=== PATIENT | female | born 1970 | race African-American/Black ===

== ENCOUNTER 2017-08-28 05:34 | Observation (INO) | payer SELFPAY ==
[2017-08-28] VITALS (15 sets, daily range): BP systolic 97–188; BP diastolic 53–88; PULSE 56–88; RESP 16–20; TEMP 97.7–98.8; O2SAT 97–100
[~2017-08-28] VITALS: Ht 152.4 cm; Wt 72.0 kg
--- NOTE | 2017-08-28 05:42 | PD ---
HPI Chief Complaint: GI Complaint Time Seen by Provider: 05:36 Travel History International Travel<30 days: No Contact w/Intl Traveler<30days: No Traveled to known affect area: No History of Present Illness HPI The patient is a 47 year old female who presents to the [facility] emergency department with a history of chest pain that she reports began like a sensation of indigestion in the evening on Monday. She reports that this went away, however when she woke up at 4:30 AM and began to walk around after taking a shower she then began to have sharp left-sided chest pain. The patient reports having associated shortness of breath and nausea. She reports that the pain is coming and going. The patient reports that the pain is worse with taking a deep breath. She denies having any prior history of DVT or PE. She reports that she does take a low-dose aspirin daily. She reports that she last took her aspirin yesterday. The patient reports that she has a history of TIA and myocardial infarction 5 years ago. She cannot recall when she last had a stress test done. She denies ever having cardiac catheterization or stent placement. She denies having any associated diaphoresis. The patient reports that she does smoke one half a pack of cigarettes per day. Review of systems otherwise, the patient denies having any known recent fevers, cough, congestion , neck pain, diarrhea, urinary symptoms, or neurologic symptoms. The patient moved to the area from [place] 3 months ago. She reports that she has been out of all of her medications during that period of time and she has not established with a local primary care doctor. LMP: 3 years ago, postmenopausal. [facility] Past Medical History Narrative Medical The patient's past medical history is significant for prior TIA, myocardial infarction, hypertension, and acid reflux. Cerebrovascular Accident: Yes Diminished Hearing: No Hypertension: Yes Immunizations Current: Yes Myocardial Infarction: Yes ?: Not Past Surgical History Narrative Surgical The patient's past surgical history is significant for 3 prior C-sections. Section: Yes Social History Alcohol Use: No Tobacco Use: Yes (2 PPD) Substance Use: No Allergies-Medications (Allergen,Severity, Reaction): Coded Allergies: No Known Allergies (Unverified , 08/28/17) Reported Meds & Prescriptions Reported Meds & Active Scripts Active Hydrochlorothiazide 25 Mg Tab 25 Mg PO DAILY Omeprazole 20 Mg Tab 20 Mg PO DAILY Simvastatin 10 Mg Tab 10 Mg PO DAILY Lisinopril 10 Mg Tab 10 Mg PO DAILY Review of Systems Except as stated in HPI: all other systems reviewed are Neg General / Constitutional: No: Fever Eyes: No: Visual changes HENT: No: Headaches Cardiovascular: Positive: Chest Pain or Discomfort Respiratory: Positive: Shortness of Breath Gastrointestinal: Positive: Nausea, Vomiting, No: Abdominal Pain Genitourinary: No: Dysuria Musculoskeletal: No: Pain Skin: No Rash Neurologic: No: Weakness Psychiatric: No: Depression Endocrine: No: Polydipsia Hematologic/Lymphatic: No: Easy Bruising Physical Exam Narrative General: The patient is a well-developed well-nourished female in no acute distress Head and Neck exam: Head is normocephalic atraumatic. Eyes: EOMI, pupils are equal round and reactive to light. Nose: Midline septum with pink mucous membranes Mouth: Dentition unremarkable. Moist mucus membranes. Posterior oropharynx is not erythematous. No tonsillar hypertrophy. Uvula midline. Airway patent. Neck: No palpable lymphadenopathy. No nuchal rigidity. No thyromegaly. Cardiovascular: Regular rate and rhythm without murmurs, gallops, or rubs. No pulse deficits to the extremities on simultaneous auscultation and palpation of her radial artery. Lungs: Clear to auscultation bilaterally. No wheezes, rhonchi, or rales. Abdomen: Soft, without tenderness to palpation in all 4 quadrants of the abdomen. No guarding, rebound, or rigidity. Normal bowel sounds are audible. No tenderness on palpation of McBurney's point. Negative Corbett sign. Extremities: No clubbing, cyanosis, or edema. 2+ pulses in all 4 extremities. No calf tenderness on palpation. Back: No spinous process tenderness to palpation. No costovertebral angle tenderness to palpation. Neurologic Exam: Grossly nonfocal. Skin Exam: No rash noted. Intact skin that is warm and dry. Data Data Last Documented VS Vital Signs Date Time Temp Pulse Resp B/P (MAP) Pulse Ox O2 Delivery O2 Flow Rate FiO2 08/28/17 07:51 17 08/28/17 07:00 97.8 88 156/80 (105) 99 Room Air Orders Orders Electrocardiogram (08/28/17 05:51) Complete Blood Count With Diff (08/28/17 05:51) Comprehensive Metabolic Panel (08/28/17 05:51) Creatine Kinase (Cpk) (08/28/17 05:51) Ckmb (Isoenzyme) Profile (08/28/17 05:51) Troponin I (08/28/17 05:51) B-Type Natriuretic Peptide (08/28/17 05:51) Prothrombin Time / Inr (Pt) (08/28/17 05:51) Act Partial Throm Time (Ptt) (08/28/17 05:51) Lipase (08/28/17 05:51) Urinalysis - C+S If Indicated (08/28/17 05:51) D-Dimer (08/28/17 05:51) Chest, Single Ap (08/28/17 05:51) Iv Access Insert/Monitor (08/28/17 05:51) Ecg Monitoring (08/28/17 05:51) Oximetry (08/28/17 05:51) Ed Urine Pregnancytest Poc (08/28/17 05:51) CKMB (08/28/17 06:28) CKMB% (08/28/17 06:28) Aspirin Chew (Aspirin Chew) (08/28/17 07:30) Nitroglycerin 2% Oint (Nitroglycerin 2% (08/28/17 07:30) Nitroglycerin Sl (Nitrostat Sl) (08/28/17 07:30) Sodium Chlorid 0.9% 500 Ml Inj (Ns 500 M (08/28/17 07:30) Ondansetron Inj (Zofran Inj) (08/28/17 07:30) Admit Order (Ed Use Only) (08/28/17 08:38) Labs Laboratory Tests Test 08/28/17 06:20 08/28/17 06:28 08/28/17 07:23 Urine Color YELLOW Urine Turbidity CLEAR Urine pH 6.5 Urine Specific [place] 1.020 Urine Protein TRACE mg/dL Urine Glucose (UA) NEG mg/dL Urine Ketones NEG mg/dL Urine Occult Blood NEG Urine Nitrite NEG Urine Bilirubin NEG Urine Urobilinogen LESS THAN 2.0 MG/DL Urine Leukocyte Esterase MOD Urine RBC 2 /hpf Urine WBC 3 /hpf Urine Squamous Epithelial Cells 2 /hpf Urine Bacteria RARE /hpf Urine Mucus FEW /lpf Microscopic Urinalysis Comment CULT NOT INDICATED White Blood Count 9.7 TH/MM3 Red Blood Count 4.12 MIL/MM3 Hemoglobin 12.6 GM/DL Hematocrit 37.0 % Mean Corpuscular Volume 89.7 FL Mean Corpuscular Hemoglobin 30.7 PG Mean Corpuscular Hemoglobin Concent 34.2 % Red Cell Distribution Width 14.3 % Platelet Count 226 TH/MM3 Mean Platelet Volume 9.3 FL Neutrophils (%) (Auto) 56.8 % Lymphocytes (%) (Auto) 33.9 % Monocytes (%) (Auto) 6.7 % Eosinophils (%) (Auto) 1.9 % Basophils (%) (Auto) 0.7 % Neutrophils # (Auto) 5.5 TH/MM3 Lymphocytes # (Auto) 3.3 TH/MM3 Monocytes # (Auto) 0.6 TH/MM3 Eosinophils # (Auto) 0.2 TH/MM3 Basophils # (Auto) 0.1 TH/MM3 CBC Comment DIFF FINAL Differential Comment Blood Urea Nitrogen 10 MG/DL Creatinine 0.64 MG/DL Random Glucose 79 MG/DL Total Protein 7.9 GM/DL Albumin 3.4 GM/DL Calcium Level 9.3 MG/DL Alkaline Phosphatase 124 U/L Aspartate Amino Transf (AST/SGOT) 21 U/L Alanine Aminotransferase (ALT/SGPT) 22 U/L Total Bilirubin 0.3 MG/DL Sodium Level 140 MEQ/L Potassium Level 4.8 MEQ/L Chloride Level 108 MEQ/L Carbon Dioxide Level 24.8 MEQ/L Anion Gap 7 MEQ/L Estimat Glomerular Filtration Rate 120 ML/MIN Total Creatine Kinase 117 U/L Creatine Kinase MB LESS THAN 0.5 NG/ML Troponin I LESS THAN 0.02 NG/ML B-Type Natriuretic Peptide 6 PG/ML Lipase 135 U/L Prothrombin Time 10.0 SEC Prothromb Time International Ratio 1.0 RATIO Activated Partial Thromboplast Time 26.6 SEC D-Dimer Quantitative (PE/DVT) 0.34 MG/L FEU [facility] Medical Decision Making Medical Screen Exam Complete: Yes Emergency Medical Condition: Yes Medical Record Reviewed: Yes Interpretation(s) Last Impressions Chest X-Ray 08/28/17 0551 Signed Impressions: Service Date/Time: Monday, August 28, 2017 06:25 - CONCLUSION: No acute disease. Arie Edwards MD Differential Diagnosis Acute coronary syndrome, versus pulmonary embolism, versus pneumonia, versus pleurisy, versus anxiety disorder, versus acid reflux Narrative Course During the course of the patient's emergency department visit, the patient's history, examination, and differential diagnosis were reviewed with the patient. The patient was placed on a residential monitor with oximetry and frequent blood pressure monitoring. The patient had IV access obtained and blood work sent for analysis. The patient had an EKG done on arrival that shows a sinus rhythm heart rate of 68, no acute ST segment elevation, QRS duration is 70 ms, QTC 408 ms. The patient was initially provided Zofran 4 mg IV for nausea, sublingual nitroglycerin 1, nitroglycerin wanted to the chest wall, aspirin 324 mg p.o. 1. Normal saline 500 mL bolus 1. The patient's laboratory studies were reviewed and remarkable for CBC that is within normal limits. Chest x-ray that shows no acute cardiopulmonary disease. Chemistries, cardiac enzymes, PT PTT, d-dimer pending at the conclusion of my shift. The patient's case will be checked out to the oncoming emergency physician to disposition the patient based on the conclusion of her workup. Diagnosis Primary Impression: Chest pain, rule out acute myocardial infarction Scripts Hydrochlorothiazide (Hydrochlorothiazide) 25 Mg Tab 25 MG PO DAILY for Blood Pressure Management, #30 TAB 2 Refills Prov: Becca San 08/28/17 Omeprazole (Omeprazole) 20 Mg Tab 20 MG PO DAILY for Reflux, #30 TAB 0 Refills Prov: Becca San 08/28/17 Simvastatin (Simvastatin) 10 Mg Tab 10 MG PO DAILY for Cholesterol Management, #30 TAB 2 Refills Prov: Becca San 08/28/17 Lisinopril (Lisinopril) 10 Mg Tab 10 MG PO DAILY, #30 TAB 2 Refills Prov: Becca San 08/28/17 Oksana Holbrook MD Aug 28, 2017 05:42
--- NOTE | 2017-08-28 06:35 | RADRPT ---
EXAM DATE/TIME: 08/28/2017 06:25 [place] COMPARISON: No previous studies available for comparison. INDICATIONS : Shortness of breath, weakness. MEDICAL HISTORY : None. SURGICAL HISTORY : None. ENCOUNTER: Initial ACUITY: 1 day PAIN SCORE: 0/10 LOCATION: Bilateral chest FINDINGS: A single view of the chest demonstrates the lungs to be symmetrically aerated without evidence of mas s, infiltrate or effusion. The cardiomediastinal contours are unremarkable. Osseous structures are intact. CONCLUSION: No acute disease. rAie Edwards MD on August 28, 2017 at 6:33 Board Certified Radiologist. This report was verified electronically.
[2017-08-28 06:48] LABS: AUTOMATED NEUTROPHIL # 5.5 TH/MM3 (1.8-7.7); BASOPHIL # 0.1 TH/MM3 (0-0.2); BASOPHIL % 0.7 % (0.0-2.0); EOSINOPHIL # 0.2 TH/MM3 (0-0.4); EOSINOPHIL % 1.9 % (0.0-4.0); HEMOGLOBIN 12.6 GM/DL (11.6-15.3); LYMPH % 33.9 % (9.0-44.0); LYMPHOCYTE # 3.3 TH/MM3 (1.0-4.8); MEAN CELL VOLUME 89.7 FL (80.0-100.0); MEAN CORPUSCULAR HEMOGLOBIN 30.7 PG (27.0-34.0); MEAN CORPUSCULAR HGB CONC 34.2 % (32.0-36.0); MEAN PLATELET VOLUME 9.3 FL (7.0-11.0); MONO % 6.7 % (0.0-8.0); MONOCYTE # 0.6 TH/MM3 (0-0.9); NEUT % 56.8 % (16.0-70.0); PLATELET COUNT 226 TH/MM3 (150-450); RED BLOOD COUNT 4.12 MIL/MM3 (4.00-5.30); RED CELL DISTRIBUTION WIDTH 14.3 % (11.6-17.2); WHITE BLOOD COUNT 9.7 TH/MM3 (4.0-11.0)
[2017-08-28 06:49] LABS: BACTERIA, URINE RARE /hpf; BILIRUBIN, URINE NEG (NEG); BLOOD, URINE NEG (NEG); GLUCOSE,URINE NEG (NEG); KETONE, URINE NEG (NEG); MUCUS URINE FEW /lpf (OCC); NITRITE,URINE NEG (NEG); PH, URINE 6.5 (5.0-8.5); SQUAMOUS EPITHELIAL CELL URINE 2 /hpf (0-5); URINE COLOR YELLOW (YELLW/STRAW); URINE LEUKOCYTE ESTERASE MOD (NEG)
[2017-08-28 07:12] LABS: ALT (GPT) 22 U/L (10-53)
[2017-08-28 07:17] LABS: ALBUMIN 3.4 GM/DL (3.4-5.0); ALKALINE PHOSPHATASE 124 U/L (45-117); AST (GOT) 21 U/L (15-37); BICARBONATE 24.8 MEQ/L (21.0-32.0); BLOOD UREA NITROGEN 10 MG/DL (7-18); CALCIUM 9.3 MG/DL (8.5-10.1); CHLORIDE 108 MEQ/L (98-107); CREATININE 0.64 MG/DL (0.50-1.00); GLOMERULAR FILTRATION RATE 120 ML/MIN (>89); GLUCOSE,RANDOM 79 MG/DL (74-106); SODIUM (NA) 140 MEQ/L (136-145); TOTAL BILIRUBIN ADULT 0.3 MG/DL (0.2-1.0); TOTAL PROTEIN 7.9 GM/DL (6.4-8.2); TROPONIN I LESS THAN 0.02 NG/ML (0.02-0.05)
--- NOTE | 2017-08-28 07:18 | PD ---
Physical Exam Date Seen by Provider: Aug 28, 2017 Time Seen by Provider: 07:00 Narrative Patient signed out to me by Dr. Holbrook at change of shift. This is a 47-year- old female with history of TIAs, myocardial infarction, presents here with complaints of chest pain. Chest pain somewhat atypical in that it is pleuritic and present with deep breath. She has no previous history of DVT or PE. Patient does take a baby aspirin daily and last took 1 yesterday. EKG shows no evidence of acute ST elevation. Laboratory tests are pending at the time of sign out. Data Data Last Documented VS Vital Signs Date Time Temp Pulse Resp B/P (MAP) Pulse Ox O2 Delivery O2 Flow Rate FiO2 08/28/17 07:51 17 08/28/17 07:00 97.8 88 156/80 (105) 99 Room Air Orders Orders Electrocardiogram (08/28/17 05:51) Complete Blood Count With Diff (08/28/17 05:51) Comprehensive Metabolic Panel (08/28/17 05:51) Creatine Kinase (Cpk) (08/28/17 05:51) Ckmb (Isoenzyme) Profile (08/28/17 05:51) Troponin I (08/28/17 05:51) B-Type Natriuretic Peptide (08/28/17 05:51) Prothrombin Time / Inr (Pt) (08/28/17 05:51) Act Partial Throm Time (Ptt) (08/28/17 05:51) Lipase (08/28/17 05:51) Urinalysis - C+S If Indicated (08/28/17 05:51) D-Dimer (08/28/17 05:51) Chest, Single Ap (08/28/17 05:51) Iv Access Insert/Monitor (08/28/17 05:51) Ecg Monitoring (08/28/17 05:51) Oximetry (08/28/17 05:51) Ed Urine Pregnancytest Poc (08/28/17 05:51) CKMB (08/28/17 06:28) CKMB% (08/28/17 06:28) Aspirin Chew (Aspirin Chew) (08/28/17 07:30) Nitroglycerin 2% Oint (Nitroglycerin 2% (08/28/17 07:30) Nitroglycerin Sl (Nitrostat Sl) (08/28/17 07:30) Sodium Chlorid 0.9% 500 Ml Inj (Ns 500 M (08/28/17 07:30) Ondansetron Inj (Zofran Inj) (08/28/17 07:30) Admit Order (Ed Use Only) (08/28/17 08:38) Labs Laboratory Tests Test 08/28/17 06:20 08/28/17 06:28 08/28/17 07:23 Urine Color YELLOW Urine Turbidity CLEAR Urine pH 6.5 Urine Specific [place] 1.020 Urine Protein TRACE mg/dL Urine Glucose (UA) NEG mg/dL Urine Ketones NEG mg/dL Urine Occult Blood NEG Urine Nitrite NEG Urine Bilirubin NEG Urine Urobilinogen LESS THAN 2.0 MG/DL Urine Leukocyte Esterase MOD Urine RBC 2 /hpf Urine WBC 3 /hpf Urine Squamous Epithelial Cells 2 /hpf Urine Bacteria RARE /hpf Urine Mucus FEW /lpf Microscopic Urinalysis Comment CULT NOT INDICATED White Blood Count 9.7 TH/MM3 Red Blood Count 4.12 MIL/MM3 Hemoglobin 12.6 GM/DL Hematocrit 37.0 % Mean Corpuscular Volume 89.7 FL Mean Corpuscular Hemoglobin 30.7 PG Mean Corpuscular Hemoglobin Concent 34.2 % Red Cell Distribution Width 14.3 % Platelet Count 226 TH/MM3 Mean Platelet Volume 9.3 FL Neutrophils (%) (Auto) 56.8 % Lymphocytes (%) (Auto) 33.9 % Monocytes (%) (Auto) 6.7 % Eosinophils (%) (Auto) 1.9 % Basophils (%) (Auto) 0.7 % Neutrophils # (Auto) 5.5 TH/MM3 Lymphocytes # (Auto) 3.3 TH/MM3 Monocytes # (Auto) 0.6 TH/MM3 Eosinophils # (Auto) 0.2 TH/MM3 Basophils # (Auto) 0.1 TH/MM3 CBC Comment DIFF FINAL Differential Comment Blood Urea Nitrogen 10 MG/DL Creatinine 0.64 MG/DL Random Glucose 79 MG/DL Total Protein 7.9 GM/DL Albumin 3.4 GM/DL Calcium Level 9.3 MG/DL Alkaline Phosphatase 124 U/L Aspartate Amino Transf (AST/SGOT) 21 U/L Alanine Aminotransferase (ALT/SGPT) 22 U/L Total Bilirubin 0.3 MG/DL Sodium Level 140 MEQ/L Potassium Level 4.8 MEQ/L Chloride Level 108 MEQ/L Carbon Dioxide Level 24.8 MEQ/L Anion Gap 7 MEQ/L Estimat Glomerular Filtration Rate 120 ML/MIN Total Creatine Kinase 117 U/L Creatine Kinase MB LESS THAN 0.5 NG/ML Troponin I LESS THAN 0.02 NG/ML B-Type Natriuretic Peptide 6 PG/ML Lipase 135 U/L Prothrombin Time 10.0 SEC Prothromb Time International Ratio 1.0 RATIO Activated Partial Thromboplast Time 26.6 SEC D-Dimer Quantitative (PE/DVT) 0.34 MG/L FEU [facility] Medical Record Reviewed: Yes Supervised Visit with CLARENCE: No Differential Diagnosis ACS versus musculoskeletal pain versus pulmonary embolism Narrative Course 47-year-old female with history of coronary artery disease, previous TIA, presents today with complaints of chest pain. Pain is somewhat atypical in that it is pleuritic. The patient has had a previous [place]. She has recently moved here 3 months ago and has not established with a primary care physician. Given her previous history, tobacco abuse, and no physician established, she will be placed in the chest pain center for rule out protocol. Diagnosis Primary Impression: Chest pain Additional Impressions: Coronary artery disease History of TIA (transient ischemic attack) Tobacco use Admitting Information Admitting Physician Requests: Observation Scripts No Active Prescriptions or Reported Meds Cornel Greenfield MD Aug 28, 2017 07:18
[2017-08-28] MEDS ORDERED: ONDANSETRON HCL 4 MG/2 ML VIAL IV PUSH ONE (07:30)
[2017-08-28] MEDS ORDERED: SODIUM CHLORID 0.9% 500 ML INJ 500 ML IV ONE (07:30)
[2017-08-28] MEDS ORDERED: ASPIRIN 81 MG CHEW TAB CHEW ONE (07:30)
[2017-08-28] MEDS ORDERED: NITROGLYCERIN 2% OINT 1 GM PACKET TOPICAL ONE (07:30)
[2017-08-28] MEDS ORDERED: NITROGLYCERIN 0.4 MG SL 25 TABS/BTL SL ONE (07:30)
[2017-08-28 07:58] LABS: D-DIMER 0.34 MG/L FEU (0.00-0.50)
[2017-08-28] MEDS ORDERED: ONDANSETRON HCL 4 MG/2 ML VIAL IV PUSH PRN (09:30)
[2017-08-28] MEDS ORDERED: ACETAMINOPHEN 500 MG CPLT PO PRN (09:30)
[2017-08-28] MEDS ORDERED: NITROGLYCERIN 0.4 MG SL 25 TABS/BTL SL PRN (09:30)
[2017-08-28] MEDS ORDERED: SODIUM CHLORIDE 0.9% FLUSH 10 ML FLUSH IV FLUSH PRN (09:30)
--- NOTE | 2017-08-28 10:51 | HHI.HP ---
HPI Primary Care Physician No Primary Care Physician Chief Complaint Chest pain History of Present Illness 47 year old female with history of coronary artery disease, hypertension, hyperlipidemia, and current smoker presents to emergency room for further evaluation of chest pain. Onset last evening 8:30 PM. Characterized as indigestion, endorses burning esophagus are with sour taste in mouth. Propped herself up and discomfort eased up allowing her to sleep until approx. 4 am. Feelings of ingestion persisted upon awakening. Awoken due to a "hot flash." Reports going through menopause, often waking up diaphoretic. Proceeded to take a shower, upon exiting shower developed quick onset of severe, sharp pain to left anterior chest. Duration 4-5 minutes. During severe discomfort hurt to take a deep breath and she became nauseous. Denied vomiting or difficulty breathing. She is unsure if she become diaphoretic due to frequent "hot flashes. " Precipitating factors movement, palpation, and taking a deep breath. Relieving factors laying still or holding area. Denies similar pain in the past. Known CAD, reporting NH age 44. Cannot recall events of NH, stating feeling like being hit by a truck, before passing out, waking up a day later and told she had a heart attack. Endorses productive cough x3 days, sputum reported to be green in color. No known fever, denies chills or body aches. Recently moved from [place] 3 months, has not established with a PCP. Endorses being out of her GERD, HTN, and HLD medications for 3 months. Review of Systems General: No fatigue,weakness, fever, chills, recent illness, or change in appetite. Has been in her general state of health other than productive cough x 3 days. HEENT: No KEY, no vision changes. Current nasal congestion and drainage. CV: Continues to have chest pain as stated above No CP, pressure, palpitations, intermittent leg pain, dizziness RESP: Productive cough x3 days, sputum green. No SOB, wheeze, or history of asthma. GI: No nausea, vomiting, or bowel changes. : No dysuria, urgency, frequency EXT: No lower leg edema, no paraesthesias MS: No discomfort or change in ROM NEURO: No difficulty with balance, LOC, motor/sensory deficits PSYCH: No anxiety, depression, or situational stress SKIN: No rashes, no concerning lesions Past Family Social History Allergies: Coded Allergies: No Known Allergies (Unverified , 08/28/17) Past Medical History Hypertension, hyperlipidemia, GERD, TIA (age 46), NH (age 44), current smoker Past Surgical History C-sections Reported Medications Reported Meds & Active Scripts Active No Active Prescriptions or Reported Medications Reports being out of medication 3 months, was taking medication for GERD, HTN, and HLD. Remembers taking lisinopril/hctz combination Active Ordered Medications Current Medications Medications (Trade) Dose Ordered Sig/Selina Route Start Time Stop Time Status Last Admin (NS Flush) 2 ml UNSCH PRN IV FLUSH 08/28/17 09:30 (NS Flush) 2 ml BID IV FLUSH 08/28/17 21:00 (Tylenol) 500 mg Q4H PRN PO 08/28/17 09:30 (Zofran Inj) 4 mg Q6H PRN IV PUSH 08/28/17 09:30 (Nitrostat Sl) 0.4 mg Q5M PRN SL 08/28/17 09:30 (Aspirin) 325 mg DAILY PO 08/29/17 09:00 Family History Noncontributory for early onset cardiovascular disease Social History Known coronary artery disease, hypertension, and hyperlipidemia. No known diabetes. Current half pack/daily smoker, endorses previously smoking 2 packs daily. Denies any alcohol or illegal drug use. Endorses an active lifestyle, works at a [employer], walking many miles daily. Past cardiac testing No recent cardiac testing, has not Physical Exam Vital Signs Vital Signs Date Time Temp Pulse Resp B/P (MAP) Pulse Ox O2 Delivery O2 Flow Rate FiO2 08/28/17 10:11 97.8 68 16 148/73 (98) 98 08/28/17 09:05 97.9 67 16 155/73 (100) 100 Room Air 08/28/17 07:51 17 08/28/17 07:00 18 08/28/17 07:00 97.8 88 18 156/80 (105) 99 Room Air 08/28/17 07:00 18 98 Room Air 08/28/17 06:07 100 Room Air 08/28/17 05:44 98.8 08/28/17 05:36 82 17 143/72 (95) 99 Physical Exam GENERAL: Alert WN, WD, NAD, pleasant, female HEAD: NC, AT EYES: Sclera clear, conjunctiva without injection, pupils equal and round ENT: Mucous membranes pink and moist NECK: Supple, no masses, trachea midline CV: RRR, without murmur, rub, gallop, no JVD, S1-S2 no S3-S4. No carotid bruits. Point tenderness under left breast, reproduced with palpation. RESP: Clear lungs throughout bilateral, no crackles, wheeze, rhonchi, symmetrical chest rise, nonlabored, able to speak in full sentences ABD: Soft, NT, ND, no masses, positive bowel tones EXT: Pulses +24, no dependent edema MS: Normal tone 4 extremities, nontender, no obvious deformities, full range of motion NEURO: CN II through CN XII grossly intact, motor strength 5/5 PSYCH: A+O 3, pleasant affect, appropriate speech, mood, insight and judgment SKIN: Normal turgor, normal texture, no lesions, no rashes, even hair distribution Laboratory Laboratory Tests Test 08/28/17 06:20 08/28/17 06:28 08/28/17 07:23 Urine Color YELLOW Urine Turbidity CLEAR Urine pH 6.5 Urine Specific [place] 1.020 Urine Protein TRACE Urine Glucose (UA) NEG Urine Ketones NEG Urine Occult Blood NEG Urine Nitrite NEG Urine Bilirubin NEG Urine Urobilinogen LESS THAN 2.0 Urine Leukocyte Esterase MOD Urine RBC 2 Urine WBC 3 Urine Squamous Epithelial Cells 2 Urine Bacteria RARE Urine Mucus FEW Microscopic Urinalysis Comment CULT NOT INDICATED White Blood Count 9.7 Red Blood Count 4.12 Hemoglobin 12.6 Hematocrit 37.0 Mean Corpuscular Volume 89.7 Mean Corpuscular Hemoglobin 30.7 Mean Corpuscular Hemoglobin Concent 34.2 Red Cell Distribution Width 14.3 Platelet Count 226 Mean Platelet Volume 9.3 Neutrophils (%) (Auto) 56.8 Lymphocytes (%) (Auto) 33.9 Monocytes (%) (Auto) 6.7 Eosinophils (%) (Auto) 1.9 Basophils (%) (Auto) 0.7 Neutrophils # (Auto) 5.5 Lymphocytes # (Auto) 3.3 Monocytes # (Auto) 0.6 Eosinophils # (Auto) 0.2 Basophils # (Auto) 0.1 CBC Comment DIFF FINAL Differential Comment Blood Urea Nitrogen 10 Creatinine 0.64 Random Glucose 79 Total Protein 7.9 Albumin 3.4 Calcium Level 9.3 Alkaline Phosphatase 124 Aspartate Amino Transf (AST/SGOT) 21 Alanine Aminotransferase (ALT/SGPT) 22 Total Bilirubin 0.3 Sodium Level 140 Potassium Level 4.8 Chloride Level 108 Carbon Dioxide Level 24.8 Anion Gap 7 Estimat Glomerular Filtration Rate 120 Total Creatine Kinase 117 Creatine Kinase MB LESS THAN 0.5 Troponin I LESS THAN 0.02 B-Type Natriuretic Peptide 6 Lipase 135 Prothrombin Time 10.0 Prothromb Time International Ratio 1.0 Activated Partial Thromboplast Time 26.6 D-Dimer Quantitative (PE/DVT) 0.34 Result Diagram: 08/28/1762708/28/17627 Imaging Last 48 hours Impressions Chest X-Ray 08/28/17 0551 Signed Impressions: Service Date/Time: Monday, August 28, 2017 06:25 - CONCLUSION: No acute disease. Arie Edwards MD Course EKG NSR, no st t segment changes Caprini VTE Risk Assessment Caprini VTE Risk Assessment: No/Low Risk (score <= 1) Caprini Risk Assessment Model Point Value = 1 Point Value = 2 Point Value = 3 Point Value = 5 Age 41-60 Minor surgery BMI > 25 kg/m2 Swollen legs Varicose veins or History of unexplained or recurrent spontaneous Oral contraceptives or hormone replacement Sepsis (< 1 month) Serious lung disease, including pneumonia (< 1 month) Abnormal pulmonary function Acute myocardial infarction Congestive heart failure (< 1 month) History of inflammatory bowel disease Medical patient at bed rest Age 61-74 Arthroscopic surgery Major open surgery (> 45 min) Laparoscopic surgery (> 45 min) Malignancy Confined to bed (> 72 hours) Immobilizing plaster cast Central venous access Age >= 75 History of VTE Family history of VTE Factor V Leiden Prothrombin [id number] Lupus anticoagulant Anticardiolipin antibodies Elevated serum homocysteine Heparin-induced thrombocytopenia Other congenital or acquired thrombophilia Stroke (< 1 month) Elective arthroplasty Hip, pelvis, or leg fracture Acute spinal cord injury (< 1 month) Prophylaxis Regimen Total Risk Factor Score Risk Level Prophylaxis Regimen 0-1 Low Early ambulation 2 Moderate Order ONE of the following: *Sequential Compression Device (SCD) *Heparin 5000 units SQ BID 3-4 Higher Order ONE of the following medications: *Heparin 5000 units SQ TID *Enoxaparin/Lovenox 40 mg SQ daily (WT < 150 kg, CrCl > 30 mL/min) *Enoxaparin/Lovenox 30 mg SQ daily (WT < 150 kg, CrCl > 10-29 mL/min) *Enoxaparin/Lovenox 30 mg SQ BID (WT < 150 kg, CrCl > 30 mL/min) AND/OR *Sequential Compression Device (SCD) 5 or more Highest Order ONE of the following medications: *Heparin 5000 units SQ TID (Preferred with Epidurals) *Enoxaparin/Lovenox 40 mg SQ daily (WT < 150 kg, CrCl > 30 mL/min) *Enoxaparin/Lovenox 30 mg SQ daily (WT < 150 kg, CrCl > 10-29 mL/min) *Enoxaparin/Lovenox 30 mg SQ BID (WT < 150 kg, CrCl > 30 mL/min) AND *Sequential Compression Device (SCD) Assessment and Plan Assessment and Plan #1 Chest pain-admitted to chest pain. Begin ruling out with 3 sets of EKG and cardiac enzymes. Will be seen and evaluated by Dr. Waylon Conley. Discussed likelihood of completing exercise stress test later this afternoon, this will be determined after evaluation by Dr. Conley. Patient agreeable to plan of care. #2 History of hypertension-lisinopril 10mg po daily. Encouraged following low sodium diet, smoking cessation, weight lost, and establishing with a PCP. Prescription for previously bp medications of lisinopril and HCTZ will be provided upon discharge. #3 History of hyperlipidemia-benefits of remaining on statin therapy discussed in length, especially with known coronary artery disease. Consider adding cholesterol medication at discharge. #4 Tobacco use-strongly encouraged and stressed the importance of tobacco cessation. Instructed to quit smoking. Discussed past TIA and being a smoker places her at higher risk for a stroke. Verbalized understanding. #5 musculoskeletal pain-Toradol 30 mg IV x1 dose #6 History of GERD-Protonix 40 mg po x1 dose now, discussed over the counter medication such as omeprazole. Consider prescription upon discharge. 1615-Patient seen and evaluated by Dr. Waylon Conley. Plan for Lexiscan in am and fasting lipid panel. If chemical testing unremarkable, plans to discharge tomorrow. Patient agreeable to plan of care. Becca San Aug 28, 2017 10:51
[2017-08-28 10:59] LABS: TROPONIN I LESS THAN 0.02 NG/ML (0.02-0.05)
[2017-08-28] MEDS ORDERED: KETOROLAC TROMETHAMINE 30 MG/ML (IVP) VIAL IV PUSH ONE (11:00)
[2017-08-28] MEDS: LISINOPRIL 10 MG TAB PO SCH (11:12)
[2017-08-28] MEDS ORDERED: PANTOPRAZOLE SOD 40 MG DELAYED RELEASE TAB PO ONE (13:45)
--- NOTE | 2017-08-28 15:58 | EKG ---
Date Performed: 08/28/2017 Time Performed: 10:00:21 PTAGE: 47 years EKG: SINUS BRADYCARDIA BORDERLINE ECG PREVIOUS TRACING : 08/28/2017 06.17 Since previous tracing, no significant change noted DOCTOR: Waylon Conley Interpretating Date/Time 08/28/2017 15:55:16
[2017-08-28] MEDS ORDERED: LISI10TA3 PO (16:23)
[2017-08-28] MEDS ORDERED: OMEP20TA93 PO (16:23)
[2017-08-28] MEDS ORDERED: SIMV10TA PO (16:23)
[2017-08-28] MEDS ORDERED: HYDR25TA5 PO (16:23)
[2017-08-28] MEDS ORDERED: cloNIDine HCL 0.1 MG TAB PO PRN (16:45)
[2017-08-28] MEDS: HYDROCHLOROTHIAZIDE 25 MG TAB PO SCH (17:06)
[2017-08-28] MEDS: SODIUM CHLORIDE 0.9% FLUSH 10 ML FLUSH IV FLUSH SCH (21:15)
--- NOTE | 2017-08-28 22:54 | EKG ---
Date Performed: 08/28/2017 Time Performed: 06:17:47 PTAGE: 47 years EKG: Sinus rhythm NORMAL ECG NO PREVIOUS TRACING DOCTOR: Pb Callaway Interpretating Date/Time 08/28/2017 22:49:36
[2017-08-29] VITALS (7 sets, daily range): BP systolic 113–164; BP diastolic 65–77; PULSE 63–79; RESP 18; TEMP 98.1–99.1; O2SAT 98–99
[2017-08-29 07:25] LABS: CHOLESTEROL 226 MG/DL (120-200); TRIGLYCERIDES 234 MG/DL (42-150)
[2017-08-29 07:28] LABS: CHOLESTEROL/ HDL RATIO 6.78 RATIO; HDL CHOLESTEROL 33.3 MG/DL (40.0-60.0); LDL CHOLESTEROL 146 MG/DL (0-99); TROPONIN I LESS THAN 0.02 NG/ML (0.02-0.05)
[2017-08-29] MEDS: LISINOPRIL 10 MG TAB PO SCH (08:26)
[2017-08-29] MEDS: HYDROCHLOROTHIAZIDE 25 MG TAB PO SCH (08:26)
[2017-08-29] MEDS: SODIUM CHLORIDE 0.9% FLUSH 10 ML FLUSH IV FLUSH SCH (08:26)
[2017-08-29] MEDS ORDERED: ASPIRIN 325 MG TAB PO SCH (09:00)
[2017-08-29] MEDS ORDERED: REGADENOSON INJ 0.4 MG/5 ML SYR ONE (09:35)
--- NOTE | 2017-08-29 11:20 | RADRPT ---
EXAM DATE/TIME: 08/29/2017 09:28 [facility] COMPARISON: No previous studies available for comparison. INDICATIONS : Chest pain. Angina. Myocardial infarction. DOSE: 25.4 mCi Tc99m Myoview at stress. 8.1 mCi Tc99m Myoview at rest. 0.4 mg Lexiscan STRESS SYMPTOMS: Nausea, headache, dyspnea and flushed. EJECTION FRACTION: 59% MEDICAL HISTORY : Hypercholesterolemia. Hypertension. Smoker. SURGICAL HISTORY : section. ENCOUNTER: Initial ACUITY: 1 day PAIN SCALE: 2/10 LOCATION: Bilateral chest TECHNIQUE: The patient underwent pharmacologic stress with infusion of prescribed dose. Continuous ECG tracing was monitored during stress. Gated SPECT imaging was performed after stress and conventional SPECT i maging was performed at rest. The examination was performed on a SPECT/CT scanner, both attenuation and non-corrected datasets were reviewed. FINDINGS: DISTRIBUTION: The maximum perfused segment at stress is in the anterobasal wall. PERFUSION STUDY: The pattern of perfusion at stress is within normal limits with regional variations in perfusion with in 35% stopped the summed stress score is 2. No evidence of redistribution. GATED STUDY: There is intact wall motion and thickening without hypokinetic or dyskinetic segments. CONCLUSION: 1. No evidence of stress-induced ischemia. 2. Intact wall motion 59% ejection fraction. RISK CATEGORY: Low (<1% Annual Mortality Rate) Goyo Tan MD on August 29, 2017 at 11:17 Board Certified Radiologist. This report was verified electronically.
--- NOTE | 2017-08-29 12:21 | HHI.DCPOC ---
Discharge Care Plan Diagnosis: (1) Chest pain (2) Coronary artery disease (3) Hypertension (4) Hyperlipidemia (5) Tobacco abuse (6) History of TIA (transient ischemic attack) Goals to Promote Your Health FOLLOW UP WITH PRIMARY CARE DOCTOR. NOW THAT YOU ARE PRESCRIBED A CHOLESTEROL MEDICATION YOU WILL NEED TO HAVE LIVER FUNCTION TESTED IN 1 MONTH. * To prevent worsening of your condition and complications * To maintain your health at the optimal level Directions to Meet Your Goals Take your medications as prescribed Follow your dietary instruction Follow activity as directed Keep your appointments as scheduled Take your immunizations and boosters as scheduled If your symptoms worsen call your PCP, if no PCP go to Urgent Care Center or Emergency Room Smoking is Dangerous to Your Health. Avoid second hand smoke Call the 24-hour hour crisis hotline for domestic abuse at Salomon Barros Aug 29, 2017 12:21
--- NOTE | 2017-08-29 17:03 | TR ---
Date Performed: 08/29/2017 Time Performed: 09:52:58 DOCTOR: Meme Joe DRUG LIST: CLINICAL HISTORY: CHEST PAIN REASON FOR TEST: CHEST PAIN REASON FOR ENDING: OBSERVATION: CONCLUSION: COMMENTS: Lexiscan stress test was performed under standard four minute protocol. Radionuclide was injected one minute prior to ending the test. No electrocardiographic abormalities were present t o suggest ischemia. Nuclear imaging and interpretation are pending.
== END 2017-08-29 17:28 | disposition home or self-care (01) ==
LOC: NEPC 05:34 → NEDA 08:40 → NEPGCP 10:18
PROVIDERS: ADMIT Internal Medicine Cardiovascular Disease; ATTEND Internal Medicine Cardiovascular Disease
DX: R07.9 Chest pain, unspecified (principal); R06.02 Shortness of breath; I25.10 Atherosclerotic heart disease of native coronary artery without angina pectoris; Z86.73 Personal history of transient ischemic attack (TIA), and cerebral infarction without residual deficits; I10 Essential (primary) hypertension; E78.5 Hyperlipidemia, unspecified; F17.200 Nicotine dependence, unspecified, uncomplicated; K21.9 Gastro-esophageal reflux disease without esophagitis; M79.1 Myalgia; R11.0 Nausea; I25.2 Old myocardial infarction; Z79.899 Other long term (current) drug therapy; R05 Cough; R00.1 Bradycardia, unspecified
CPT/HCPCS: 71045; 76937; 78452; 80053; 80061; 81001; 82550; 82552; 83690; 83880; 84484; 84703; 85025; 85379; 85610; 85730; 93005; 93017; 96361; 96374; 96375; 96376; 99285; A9502; G0378; J1885; J2405; J2785; J7040

== ENCOUNTER 2017-09-02 11:54 | Emergency (ER) | payer SELFPAY ==
[~2017-09-02] VITALS: Ht 152.4 cm; Wt 70.0 kg
[~2017-09-02 11:54] MED LIST: HYDR25TA5 PO; LISI10TA3 PO; OMEP20TA93 PO; SIMV10TA PO
[2017-09-02 11:56] VITALS: BP 165/66; PULSE 62; RESP 14; TEMP 98.7; O2SAT 100
[2017-09-02 12:15] VITALS: O2SAT 96
[2017-09-02] MEDS ORDERED: PROCHLORPERAZINE INJ 10 MG/2 ML VIAL IVP ONE (12:15)
[2017-09-02] MEDS ORDERED: KETOROLAC TROMETHAMINE 30 MG/ML (IVP) VIAL IVP ONE (12:15)
[2017-09-02] MEDS ORDERED: SODIUM CHLOR 0.9% 1000 ML INJ 1,000 ML IV ONE (12:15)
[2017-09-02] MEDS ORDERED: SODIUM CHLORIDE 0.9% FLUSH 10 ML FLUSH IVF PRN (12:15)
[2017-09-02] MEDS ORDERED: diphenhydrAMINE HCL 50 MG/ML VIAL IVP ONE (12:15)
[2017-09-02] MEDS ORDERED: ONDANSETRON HCL 4 MG/2 ML VIAL IVP ONE (12:15)
--- NOTE | 2017-09-02 13:14 | PD ---
HPI Chief Complaint: Dizziness Time Seen by Provider: 12:11 Travel History International Travel<30 days: No Contact w/Intl Traveler<30days: No Traveled to known affect area: No History of Present Illness HPI 47 YO F with PMH of HTN, HLD presents to the ED via EMS for evaluation of dizziness on exertion, SOB. The patient endorses a posterior headache this AM, throbbing in quality, rated7/10, similar to previous headaches . She states that upon walking across the street to her daughters house this morning she became very dizzy and SOB. Dizziness was improved by resting. She endorses mild nausea. She denies vision changes, CP, palpitations, N/V, weakness in the extremities. She endorses compliance with her daily medications. PFSH Past Medical History Cardiovascular Problems: Yes High Cholesterol: Yes Cerebrovascular Accident: Yes Diminished Hearing: No GERD: Yes Hypertension: Yes Immunizations Current: Yes Myocardial Infarction: Yes ?: Not Tubal Ligation: Yes Past Surgical History Section: Yes Social History Alcohol Use: No Tobacco Use: Yes (/2 PPD) Substance Use: No Allergies-Medications (Allergen,Severity, Reaction): Coded Allergies: No Known Allergies (Unverified , 09/02/17) Reported Meds & Prescriptions Reported Meds & Active Scripts Active Hydrochlorothiazide 25 Mg Tab 25 Mg PO DAILY Omeprazole 20 Mg Tab 20 Mg PO DAILY Simvastatin 10 Mg Tab 10 Mg PO DAILY Lisinopril 10 Mg Tab 10 Mg PO DAILY Review of Systems Except as stated in HPI: all other systems reviewed are Neg Physical Exam Narrative GENERAL: Well-nourished, well-developed nontoxic-appearing female no acute distress. SKIN: Focused skin assessment warm/dry. HEAD: Normocephalic. EYES: No scleral icterus. No injection or drainage. NECK: Supple, trachea midline. No JVD or lymphadenopathy. CARDIOVASCULAR: Regular rate and rhythm without murmurs, gallops, or rubs. RESPIRATORY: Breath sounds clear and equal bilaterally. No accessory muscle use. GASTROINTESTINAL: Abdomen soft, non-tender, nondistended. MUSCULOSKELETAL: No cyanosis, or edema. NEUROLOGICAL: Awake and alert. Cranial nerves II through XII intact. Motor and sensory grossly within normal limits. Five out of 5 muscle strength in all muscle groups. Normal speech. BACK: Nontender without obvious deformity. No CVA tenderness. Data Data Last Documented VS Vital Signs Date Time Temp Pulse Resp B/P (MAP) Pulse Ox O2 Delivery O2 Flow Rate FiO2 09/02/17 12:15 96 Room Air 09/02/17 11:56 98.7 62 14 Orders Orders Complete Blood Count With Diff (09/02/17 12:11) Comprehensive Metabolic Panel (09/02/17 12:11) Prothrombin Time / Inr (Pt) (09/02/17 12:11) Act Partial Throm Time (Ptt) (09/02/17 12:11) Ct Brain W/O Iv Contrast(Rout) (09/02/17 12:11) Ecg Monitoring (09/02/17 12:11) Iv Access Insert/Monitor (09/02/17 12:11) Oximetry (09/02/17 12:11) Sodium Chloride 0.9% Flush (Ns Flush) (09/02/17 12:15) Ketorolac Inj (Toradol Inj) (09/02/17 12:15) Ondansetron Inj (Zofran Inj) (09/02/17 12:15) Prochlorperazine Inj (Compazine Inj) (09/02/17 12:15) Diphenhydramine Inj (Benadryl Inj) (09/02/17 12:15) Urinalysis - C+S If Indicated (09/02/17 12:11) Electrocardiogram (09/02/17 ) Chest, Single Ap (09/02/17 ) Ed Urine Pregnancytest Poc (09/02/17 12:11) Sodium Chlor 0.9% 1000 Ml Inj (Ns 1000 M (09/02/17 12:15) Influenzae A/B Antigen (09/02/17 12:21) Drug Screen, Random Urine (09/02/17 12:21) Vascular Access Team Consult/P PRN (09/02/17 14:21) Vascular Poc Ultrasound (09/02/17 ) Ed Discharge Order (09/02/17 16:14) Labs Laboratory Tests Test 09/02/17 13:15 09/02/17 14:42 09/02/17 14:55 Blood Urea Nitrogen 21 MG/DL Creatinine 0.96 MG/DL Random Glucose 93 MG/DL Total Protein 8.9 GM/DL Albumin 3.9 GM/DL Calcium Level 10.0 MG/DL Alkaline Phosphatase 142 U/L Aspartate Amino Transf (AST/SGOT) 19 U/L Alanine Aminotransferase (ALT/SGPT) 21 U/L Total Bilirubin 0.2 MG/DL Sodium Level 134 MEQ/L Potassium Level 5.0 MEQ/L Chloride Level 104 MEQ/L Carbon Dioxide Level 25.2 MEQ/L Anion Gap 5 MEQ/L Estimat Glomerular Filtration Rate 75 ML/MIN Urine Color YELLOW Urine Turbidity HAZY Urine pH 5.5 Urine Specific [place] 1.025 Urine Protein 30 mg/dL Urine Glucose (UA) NEG mg/dL Urine Ketones NEG mg/dL Urine Occult Blood NEG Urine Nitrite NEG Urine Bilirubin NEG Urine Urobilinogen 2.0 MG/DL Urine Leukocyte Esterase LARGE Urine RBC 7 /hpf Urine WBC 8 /hpf Urine Squamous Epithelial Cells 7 /hpf Urine Amorphous Sediment RARE Urine Bacteria FEW /hpf Urine Mucus FEW /lpf Microscopic Urinalysis Comment CULT NOT INDICATED Urine Opiates Screen NEG Urine Barbiturates Screen NEG Urine Amphetamines Screen NEG Urine Benzodiazepines Screen NEG Urine Cocaine Screen NEG Urine Cannabinoids Screen POS White Blood Count 12.7 TH/MM3 Red Blood Count 4.08 MIL/MM3 Hemoglobin 12.3 GM/DL Hematocrit 36.7 % Mean Corpuscular Volume 89.9 FL Mean Corpuscular Hemoglobin 30.2 PG Mean Corpuscular Hemoglobin Concent 33.6 % Red Cell Distribution Width 14.2 % Platelet Count 231 TH/MM3 Mean Platelet Volume 9.0 FL Neutrophils (%) (Auto) 76.9 % Lymphocytes (%) (Auto) 18.7 % Monocytes (%) (Auto) 3.6 % Eosinophils (%) (Auto) 0.4 % Basophils (%) (Auto) 0.4 % Neutrophils # (Auto) 9.8 TH/MM3 Lymphocytes # (Auto) 2.4 TH/MM3 Monocytes # (Auto) 0.5 TH/MM3 Eosinophils # (Auto) 0.1 TH/MM3 Basophils # (Auto) 0.1 TH/MM3 CBC Comment DIFF FINAL Differential Comment Prothrombin Time 10.7 SEC Prothromb Time International Ratio 1.1 RATIO Activated Partial Thromboplast Time 22.4 SEC [facility] Medical Decision Making Medical Screen Exam Complete: Yes Emergency Medical Condition: Yes Differential Diagnosis cephalgia versus dehydration versus metabolic derangement versus less likely ICH versus other Narrative Course 47 YO F with PMH of HTN, HLD presents to the ED via EMS for evaluation of dizziness on exertion, SOB. The patient endorses a posterior headache this AM, throbbing in quality, rated 7/10, similar to previous headaches. She states that upon walking across the street to her daughters house this morning she became very dizzy and SOB. Dizziness was improved by resting. She endorses mild nausea. She denies vision changes, CP, palpitations, N/V, weakness in the extremities. She endorses compliance with her daily medications. Vitals reviewed. On exam the patient has no focal neuro deficits. Chest CTA B. Abdomen soft and nontender. No lower extremity edema. IV was established. Patient was administered 1 L normal saline, 25 mg Benadryl, 5 mg Compazine, 4 mg Zofran and 30 mg Toradol IV. EKG rate 75, sinus rhythm. OR interval 165, QRS 86, QTC 407. Normal axis. No acute ST changes. Reviewed by Dr. Garza. CXR: No acute disease. CT brain: Normal exam for patient of this age per radiology read. Tox screen positive for cannabinoids. UA: No culture indicated. INR 1.1. Flu swab negative 09/02/17 13:15 Total Protein 8.9 #H, Albumin 3.9, Calcium Level 10.0, Alkaline Phosphatase 142 H, Aspartate Amino Transf (AST/SGOT) 19, Alanine Aminotransferase (ALT/SGPT) 21 , Total Bilirubin 0.2 09/02/17 14:55 On recheck patient reports total resolution of her symptoms. I suspect this may be secondary to marijuana use. Patient's instructed to rest, hydrate, return to normal, gentle activities as tolerated, follow up with her primary care provider, return for worsening symptoms. She is understanding of instructions and is agreeable to the care plan. The patient is stable and discharged home. Diagnosis Primary Impression: Dizziness Referrals: Primary Care Physician Patient Instructions: Dizziness (ED), General Instructions Additional Instructions: Rest, hydrate. Continue with home medications as previously prescribed. Return to the ED for worsening symptoms or any urgent or emergent medical condition. Disposition: 01 DISCHARGE HOME Condition: Stable Donna Larios Sep 02, 2017 13:14
--- NOTE | 2017-09-02 13:48 | RADRPT ---
EXAM DATE/TIME: 09/02/2017 13:18 [facility] COMPARISON: CHEST SINGLE AP, August 28, 2017, 6:25. INDICATIONS : Short Of Breath MEDICAL HISTORY : Hypertension. SURGICAL HISTORY : section. ENCOUNTER: Initial ACUITY: 1 day PAIN SCORE: 0/10 LOCATION: chest FINDINGS: A single view of the chest demonstrates the lungs to be symmetrically aerated without evidence of mas s, infiltrate or effusion. The cardiomediastinal contours are unremarkable. Osseous structures are intact. CONCLUSION: No acute disease. Nicolas Dillard MD on September 02, 2017 at 13:45 Board Certified Radiologist. This report was verified electronically.
[2017-09-02 14:18] LABS: ALT (GPT) 21 U/L (10-53)
[2017-09-02 14:20] LABS: ALKALINE PHOSPHATASE 142 U/L (45-117); TOTAL BILIRUBIN ADULT 0.2 MG/DL (0.2-1.0); TOTAL PROTEIN 8.9 GM/DL (6.4-8.2)
[2017-09-02 14:23] LABS: ALBUMIN 3.9 GM/DL (3.4-5.0); AST (GOT) 19 U/L (15-37); BICARBONATE 25.2 MEQ/L (21.0-32.0); BLOOD UREA NITROGEN 21 MG/DL (7-18); CHLORIDE 104 MEQ/L (98-107); CREATININE 0.96 MG/DL (0.50-1.00); GLOMERULAR FILTRATION RATE 75 ML/MIN (>89); GLUCOSE,RANDOM 93 MG/DL (74-106); SODIUM (NA) 134 MEQ/L (136-145)
[2017-09-02 15:11] LABS: AUTOMATED NEUTROPHIL # 9.8 TH/MM3 (1.8-7.7); BASOPHIL # 0.1 TH/MM3 (0-0.2); BASOPHIL % 0.4 % (0.0-2.0); EOSINOPHIL # 0.1 TH/MM3 (0-0.4); EOSINOPHIL % 0.4 % (0.0-4.0); HEMATOCRIT 36.7 % (35.0-46.0); HEMOGLOBIN 12.3 GM/DL (11.6-15.3); LYMPH % 18.7 % (9.0-44.0); LYMPHOCYTE # 2.4 TH/MM3 (1.0-4.8); MEAN CELL VOLUME 89.9 FL (80.0-100.0); MEAN CORPUSCULAR HEMOGLOBIN 30.2 PG (27.0-34.0); MEAN CORPUSCULAR HGB CONC 33.6 % (32.0-36.0); MONO % 3.6 % (0.0-8.0); MONOCYTE # 0.5 TH/MM3 (0-0.9); NEUT % 76.9 % (16.0-70.0); PLATELET COUNT 231 TH/MM3 (150-450); RED BLOOD COUNT 4.08 MIL/MM3 (4.00-5.30); RED CELL DISTRIBUTION WIDTH 14.2 % (11.6-17.2); WHITE BLOOD COUNT 12.7 TH/MM3 (4.0-11.0)
[2017-09-02 15:18] LABS: AMORPHOUS SEDIMENT, URINE RARE; BACTERIA, URINE FEW /hpf; BILIRUBIN, URINE NEG (NEG); BLOOD, URINE NEG (NEG); GLUCOSE,URINE NEG (NEG); KETONE, URINE NEG (NEG); MUCUS URINE FEW /lpf (OCC); NITRITE,URINE NEG (NEG); PH, URINE 5.5 (5.0-8.5); SQUAMOUS EPITHELIAL CELL URINE 7 /hpf (0-5); URINE COLOR YELLOW (YELLW/STRAW); URINE LEUKOCYTE ESTERASE LARGE (NEG)
[2017-09-02 15:28] LABS: INTERNATIONAL NORMALIZED RATIO 1.1 RATIO; PROTHROMBIN TIME - PATIENT 10.7 SEC (9.8-11.6)
--- NOTE | 2017-09-02 15:59 | RADRPT ---
EXAM DATE/TIME: 09/02/2017 15:44 [facility] COMPARISON: No previous studies available for comparison. INDICATIONS : Dizziness, nausea and cephalgia today. RADIATION DOSE: 36.46 CTDIvol (mGy) MEDICAL HISTORY : Stroke. Gastroesophageal reflux disease. Hypertension. SURGICAL HISTORY : Tubal ligation. ENCOUNTER: Initial ACUITY: 1 day PAIN SCALE: 5/10 LOCATION: Bilateral head TECHNIQUE: Multiple contiguous axial images were obtained of the head. Using automated exposure control and adj ustment of the mA and/or kV according to patient size, radiation dose was kept as low as reasonably a chievable to obtain optimal diagnostic quality images. DICOM format image data is available electro nically for review and comparison. FINDINGS: CEREBRUM: The ventricles are normal for age. No evidence of midline shift, mass lesion, hemorrhage or acute in farction. No extra-axial fluid collections are seen. POSTERIOR FOSSA: The cerebellum and brainstem are intact. The 4th ventricle is midline. The cerebellopontine angle i s unremarkable. EXTRACRANIAL: The visualized portion of the orbits is intact. SKULL: The calvaria is intact. No evidence of skull fracture. CONCLUSION: Normal examination for a patient of this age. Jani Brown MD on September 02, 2017 at 15:57 Board Certified Radiologist. This report was verified electronically.
--- NOTE | 2017-09-02 17:08 | EKG ---
Date Performed: 09/02/2017 Time Performed: 12:16:54 PTAGE: 47 years EKG: Sinus rhythm MINIMAL VOLTAGE CRITERIA FOR LVH, CONSIDER NORMAL VARIANT ST ABNORMALITY, CONSIDER EARLY REPOLARIZAT ION BORDERLINE ECG PREVIOUS TRACING : 08/28/2017 10.00 No significant change from previous tracing noted. DOCTOR: Francisco Olvera Interpretating Date/Time 09/02/2017 17:07:54
== END 2017-09-02 16:40 | disposition home or self-care (01) ==
LOC: NEPC 11:54
DX: R42 Dizziness and giddiness (principal); R11.0 Nausea; R51 Headache; R06.02 Shortness of breath; E78.00 Pure hypercholesterolemia, unspecified; I10 Essential (primary) hypertension; K21.9 Gastro-esophageal reflux disease without esophagitis; F17.200 Nicotine dependence, unspecified, uncomplicated; F12.90 Cannabis use, unspecified, uncomplicated; Z79.899 Other long term (current) drug therapy
CPT/HCPCS: 70450; 71045; 80053; 80307; 81001; 84703; 85025; 85610; 85730; 87804; 93005; 96374; 96375; 99285; J0780; J1200; J1885; J2405; J7030